=== PATIENT | female | born 1945 | race Asian ===

== ENCOUNTER 2017-09-28 15:03 | Outpatient (CLI) | payer MEDICARE, OTHER ==
--- NOTE | 2017-09-28 16:53 | SJPRAD ---
RIGHT RIB SERIES 09/28/17 COMPARISON: None. HISTORY: Right sided rib pain for three days. FINDINGS: Two views of the right ribs shows no evidence of a displaced rib fracture. No underlying pleural thi ckening or pneumothorax are seen. No expansile rib lesions are seen. IMPRESSION: No significant right rib abnormality. POS: [facility]
== END 2017-09-28 15:04 | disposition home or self-care (01) ==
LOC: MWLC RAD 15:03
PROVIDERS: ATTEND Family Medicine
DX: R07.81 Pleurodynia (principal)

== ENCOUNTER 2017-10-17 12:29 | Day surgery (SDC) | payer MEDICARE, OTHER ==
[2017-10-16 16:36] VITALS: BMI 18.3
[2017-10-17] MEDS ORDERED: Fentanyl 100 MCG/2 ML VIAL ONE ×2 (14:23→17:50)
--- NOTE | 2017-10-17 16:34 | MRI ---
LUMBAR SPINE MRI WITHOUT CONTRAST 10/17/17 HISTORY: Wedge compression fracture in the thoracic spine. Additional compression fractures in the lumbar spin e. Patient has bilateral leg pain. COMPARISON: None. CORRELATION: Thoracic spine three views, 05/08/17. TECHNIQUE: Lumbar spine MRI is performed without intravenous gadolinium administration. Multisequential, multipl huyen imaging was performed. FINDINGS: There is T1 marrow signal hypointensity involving the L1, L2, L3, and L4 vertebral bodies. There are areas of T1 and T2 hyperintensity involving the end plates suggesting type II Modic change. there is a mild chronic compression fracture at L1. There is mild retropulsion. There is minimal compression d eformity involving the superior end plate of L2. Minimal compression deformity involving the anterior end plate of L3. Schmorl's node along the superior end plate of L5 is noted. There is 5.3 mm of ante rolisthesis of T12 upon L1. 6 mm retrolisthesis of L3 upon L4 and 7 mm of anterolisthesis of L4 upon L5. There appear to be edema involving the inferior end plate of T11 and superior end plate of T12. E valuation is incomplete. Refer to thoracic spine MRI for further detail. 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 Additional Tarlov cysts at the sacrum are noted. Symmetric signal intensity of the psoas muscles. T2 hyperintensities in the left and right kidney com patible with bilateral renal cysts. The conus medullaris terminates at the mid T12 level. T12-L1: Mild loss of disc space height. No high grade central canal stenosis or high grade foraminal narrowing. L1 vertebral body, mild central canal stenosis due to retropulsion. L1-L2: Disc desiccation with mild loss of disc space height. Mild central canal stenosis. Minimal enc roachment upon the right subarticular zone. Moderate right and mild left foraminal narrowing. L2-L3: Disc desiccation with mild loss of disc space height. No high grade central canal stenosis. Mi ld bilateral foraminal narrowing. L3-L4: Disc desiccation without significant loss of disc space height. No significant posterior disc abnormality. No significant central canal stenosis. Mild bilateral foraminal narrowing. L4-L5: Disc desiccation without significant loss of disc space height. Generalized disc bulges result s in mild central canal stenosis. There is mild to moderate narrowing. There is moderate narrowing of the left subarticular zone secondary to disc material and posterior element hypertrophy. Overall, th ere is mild to moderate central canal stenosis. There is also mild narrowing of the right subarticula r zone with partial obscuration traversing the right L5 nerve root. Mild bilateral foraminal narrowin g. L5-S1 disc desiccation without significant loss of disc space height. No significant central canal st enosis. Narrowing of the right subarticular zone with near complete obstruction traversing the right S1 nerve root. Left subarticular zone is unremarkable. Right neural foramen is patent. A small perine ural sleeve versus a synovial cyst is noted in the left neural foramen. This lesion measures 0.6 cm. There is resultant moderate left foraminal narrowing. IMPRESSION: Degenerative changes of the lumbar spine as above. POS: [facility]
--- NOTE | 2017-10-17 19:26 | MRI ---
MRI THORACIC SPINE WITHOUT CONTRAST 10/17/17 Multiplanar and multisequential images of the thoracic spine obtained. HISTORY: Wedge compression of T9-T10 vertebra. Comparison made to plain films of thoracic spine dated 05/08/17. That exam revealed wedge compression deformity at the L1 vertebra. FINDINGS: On today's exam, T2 and STIR sequences show increased signal indicating edema involving the T11 and T 12 vertebra. There is mild compression deformity involving the T12 vertebra with mild loss of central and anterior height. Minimal wedging of the T11 vertebra. The T10 vertebra shows no evidence of edema or compression. The L1 vertebra shows wedge compression which is stable. There is a posterior disc protrusion at the T7-T8 level which impinges on the anterior cord. Cord signal is normal. 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 There are smaller nerve root s leeve cysts seen at several other levels. IMPRESSION: 1. Edema with mild compression deformities involving the T11 and T12 vertebra. 2. Disc protrusion at T7-T8 impinges on the anterior cord. 3. Stable compression deformity at the L1 vertebra. POS: [facility]
== END 2017-10-17 18:53 | disposition home or self-care (01) ==
LOC: MRI 12:29
PROVIDERS: ATTEND Anesthesiology Pain Medicine
DX: S22.070A Wedge compression fracture of T9-T10 vertebra, initial encounter for closed fracture (principal); S32.010A Wedge compression fracture of first lumbar vertebra, initial encounter for closed fracture; M06.9 Rheumatoid arthritis, unspecified; I10 Essential (primary) hypertension; E78.5 Hyperlipidemia, unspecified; K58.9 Irritable bowel syndrome, unspecified; Z91.011 Allergy to milk products; Z91.018 Allergy to other foods; Z88.1 Allergy status to other antibiotic agents; Z79.899 Other long term (current) drug therapy
CPT/HCPCS: 72146; 72148; 96374; J3010

== ENCOUNTER 2018-01-30 11:38 | Day surgery (SDC) | payer MEDICARE, OTHER ==
[2018-01-29 10:12] VITALS: BMI 16.0
[2018-01-30] MEDS ORDERED: Midazolam HCl 2 mg/2 ml Vial ONE (14:11)
--- NOTE | 2018-01-30 15:16 | OP ---
DATE OF PROCEDURE: 01/30/2018 GI ENDOSCOPY NOTE SURGEON: Alex Cheng M.D. PRIMARY CARE PHYSICIAN: Shauna Giron M.D. X RAY INSPECTOR SURGEON: None. PROCEDURE: Esophagogastroduodenoscopy with biopsies and balloon dilation of the esophagus. INDICATIONS: 1. Dysphagia. 2. Abnormal barium swallow. 3. Weight loss. MEDICATIONS: See anesthesia record. FINDINGS: After discussion of the risks, benefits and alternatives of the procedure, informed consen t was obtained and witnessed. Pre-endoscopic cardiopulmonary examination was satisfactory. Timeout was performed before sedation was achieved. Sedation was achieved with anesthesia assistance in the endoscopy unit. A Pentax adult upper endoscope was placed into the oropharynx and passed through the cricopharyngeus under direct visualization. The proximal and mid esophageal mucosa appeared normal. In the distal esophagus just above the GE junction at 36 cm from the incisors, there are few small erosions consistent with LA grade B esophagitis. Biopsies were obtained from the distal esophagus. It was also noted that much of the esophagus was moderately dilated and peristaltic; however, there w as no resistance to passage of the endoscope through the GE junction. The Z-line was located at 36 c m from the incisors. There was a very shallow Schatzki ring with no resistance to endoscope passage located at the GE junction. The endoscope was advanced forward into the stomach. Forward and retrof lexed views of the entire gastric mucosa were obtained. There is a small hiatal hernia. The gastric mucosa appears diffusely atrophic. There were no ulcerations or erosions. Biopsies were obtained f rom the gastric mucosa for histology and to rule out H. pylori infection. The endoscope was then pas sed through a normal appearing pylorus and into the first and second portions of the duodenum, which also appeared normal. Duodenal biopsies were obtained to rule out celiac disease. At this point, th e endoscope was withdrawn back into the esophagus. Through the scope balloon dilator to dilate the e sophagus at the level of the GE junction, we dilated serially to 15 mm, then 16.5 mm, and then to 18 mm. This was performed easily and there was no significant mucosal trauma induced at the level of th e distal esophagus. The upper endoscope was then completely withdrawn and the patient allowed to rec over. The patient tolerated the procedure well. There were no immediate post-procedure complication s. IMPRESSION: 1. Dilated esophagus with relative absence of peristalsis, suspicious for possible esophageal motili ty disorder. 2. No evidence of mechanical esophageal stricture. 3. Grade B distal esophagitis, biopsied. 4. Shallow Schatzki ring at the GE junction, dilated with balloon to 18 mm and no mucosal disruption visualized. 5. Small hiatal hernia. 6. Diffusely atrophic gastric mucosa, biopsied for histology and to rule out Helicobacter pylori. 7. Normal duodenum, biopsied to rule out celiac disease. RECOMMENDATIONS: 1. Follow up pathology on the biopsies. 2. Continue omeprazole. 3. Would recommend she start caloric supplementation drink such as Ensure 1 can twice daily. 4. We will have her follow up closely in clinic in the next couple of weeks, once biopsy results are available.
== END 2018-01-30 16:00 | disposition home or self-care (01) ==
LOC: SDC 11:38
PROVIDERS: ATTEND Internal Medicine
PROC: 0DB98ZX Excision of Duodenum, Via Natural or Artificial Opening Endoscopic, Diagnostic (ICD-10-PCS; principal; 2018-01-30)
PROC: 0DB68ZX Excision of Stomach, Via Natural or Artificial Opening Endoscopic, Diagnostic (ICD-10-PCS; 2018-01-30)
PROC: 0DB58ZX Excision of Esophagus, Via Natural or Artificial Opening Endoscopic, Diagnostic (ICD-10-PCS; 2018-01-30)
PROC: 0D758ZZ Dilation of Esophagus, Via Natural or Artificial Opening Endoscopic (ICD-10-PCS; 2018-01-30)
DX: K29.70 Gastritis, unspecified, without bleeding (principal); K21.0 Gastro-esophageal reflux disease with esophagitis; K22.2 Esophageal obstruction; K44.9 Diaphragmatic hernia without obstruction or gangrene; R63.4 Abnormal weight loss; M81.0 Age-related osteoporosis without current pathological fracture; M06.9 Rheumatoid arthritis, unspecified; Z91.018 Allergy to other foods; Z91.011 Allergy to milk products; Z88.1 Allergy status to other antibiotic agents; Z90.49 Acquired absence of other specified parts of digestive tract; Z86.010 Personal history of colon polyps
CPT/HCPCS: 88305; 88312; 88313; J2250